=== PATIENT | female | born 1970 | race Caucasian/White ===

== ENCOUNTER 2020-11-12 07:17 | Emergency (ER) | payer OTHER, SELFPAY ==
--- NOTE | ~2020-11-12 | CT_ITS ---
EXAMINATION: CT ANGIOGRAM OF THE CHEST WITH AND WITHOUT CONTRAST (CT PULMONARY ANGIOGRAM FOR PE) CLINICAL INFORMATION: Reason for Exam chest pain dyspnea has COVID r/o PE COMPARISON: Chest x-ray earlier the same day TECHNIQUE: Prior to contrast administration, noncontrast localization images were obtained. Subsequently, multidetector volumetric imaging was performed from the thoracic inlet to below the diaphragms following the administration of 65 mL Omnipaque 350 intravenous contrast. No contrast reaction reported Sagittal, coronal, and MIP oblique sagittal reformatted images were obtained on the CT workstation, uploaded to PACS, and reviewed. This CT examination was performed using dose optimization techniques as appropriate, variously including the following: *Automated exposure control *Adjustment of mA and/or kV according to patient size (this includes techniques or standardized protocols for targeted exams where dose is matched to indication/reason for exam; i.e. extremities or head) *Use of iterative reconstruction technique Total exam dose-length product 241 mGy-cm FINDINGS: QUALITY OF STUDY/CONTRAST BOLUS: Satisfactory. PULMONARY ARTERIES: No central or segmental pulmonary emboli. THORACIC AORTA: No aneurysm or dissection. LUNG: Extensive patchy bilateral groundglass opacities are seen, consistent with history of viral COVID pneumonitis. No dense focal consolidation. PLEURA: No pleural effusion or pneumothorax. MEDIASTINUM: Normal heart size. No pericardial effusion. No hilar or mediastinal lymphadenopathy. No evidence of septal bowing or right heart strain. CHEST WALL/AXILLA: No axillary or internal mammary lymphadenopathy. OSSEOUS STRUCTURES: No acute or suspicious osseous abnormality. UPPER ABDOMEN: No adrenal mass. No reflux of contrast into the hepatic veins to suggest elevated right heart pressures. CT/CT angio chest PE protocol IMPRESSION: No pulmonary embolus seen. Extensive patchy bilateral groundglass opacities, consistent with history of viral COVID pneumonitis. VTE: negative
--- NOTE | ~2020-11-12 | XR_ITS ---
EXAMINATION: XR CHEST CLINICAL INFORMATION: COVID-19 COMPARISON: None TECHNIQUE: Portable AP view of the chest was obtained. FINDINGS: There are patchy bilateral airspace opacities, greatest lower zones. There is no effusion. The heart is normal in size and the vascularity is normal. The hilar and mediastinal contours and bony structures are unremarkable. XR/XR chest 1V IMPRESSION: Bilateral patchy airspace opacities. No effusion.
[2020-11-12 07:30] VITALS: RESP 20; TEMP 37.3; O2SAT 93
--- NOTE | 2020-11-12 07:33 | ED.SOB ---
HPI - SOB/Dyspnea General Chief Complaint: Dyspnea Stated Complaint: COVID POS DIFF BREATHING Time Seen by Provider: 11/12/20 07:24 Source: patient Mode of arrival: ambulatory Limitations: no limitations History of Present Illness HPI Narrative: healthy 50 yo female with COVID dx on 06/06 sick two days prior comes in today she feels like her chest is heavy and she cannot breathe, has no had issues with her lungs in the past and does not smoke MD elicited complaint: shortness of breath, cough and pain with inspiration Pertinent past history: other (COVID positive) Onset (ago): day(s) (3) Context: recent illness Timing: intermittent Severity: moderate Exacerbating factors: exertion, coughing and inspiration Relieving factors: nothing Associated symptoms: chest pain, pain with inspiration, cough and lightheadedness Treatment prior to arrival: none Related Data Previous Rx's Medication Instructions Recorded dexamethasone 6 mg PO DAILY 9 Days #9 tab 11/12/20 hydrocodone-homatropine 5 ml PO Q6H PRN #60 ml 11/12/20 ondansetron 4 mg PO Q8H PRN #20 tab 11/12/20 Allergies Allergy/AdvReac Type Severity Reaction Status Date / Time No Known Allergies Allergy Verified 11/12/20 07:46 Review of Systems Review of Systems: Constitutional : No Fever, pos Chills ENT/Mouth : No sore throat, No Rhinorrhea, No Swallowing Difficulty Eyes: No Eye Pain, No Swelling, No Redness Cardiovascular : pos Chest Pain, positive SOB, No Orthopnea, no Edema Respiratory : pos Cough, No Sputum, No Wheezing, positive dyspnea Gastrointestinal : No Nausea, No Vomiting, No Diarrhea, No abdominal Pain, No Hematochezia, No Melena Genitourinary : No Dysuria, No Urinary Frequency, No Hematuria Musculoskeletal : No joint pain, No Myalgias Skin : No Skin Lesions, No rash Neuro : pos Weakness, No Numbness, No Dizziness, No Headache Psych : No Anxiety/Panic, No Depression Heme/Lymph: No Bruising, No Lymphadenopathy Endocrine : No Polyuria, No Polydipsia All other systems reviewed and are negative [facility] Past Medical History Attestation statement: The following information was validated with the patient. Medical History Hypothyroid Social History Social History Smoked in Last 30 Days: No Use of substances other than those prescribed or required for medical reasons: No Advance Directives: No Advance Directives Information Provided: No Physical Exam Vital Signs: Vital Signs: Last Vital Signs Temp 98.5 F 11/12/20 07:34 Pulse 89 11/12/20 09:23 Resp 18 11/12/20 07:34 BP 108/57 L 11/12/20 09:23 Pulse Ox 94 11/12/20 09:23 Body Mass Index 27.4 Appearance: Alert. Oriented X3. No acute distress. Eyes: Pupils equal, round and reactive to light. ENT: Pharynx normal. Neck: Normal inspection. Neck supple. CVS: Normal heart rate and rhythm. Pulses normal. Respiratory: No respiratory distress. Breath sounds decreased throughout some end exp wheezes noted along with rhonchi Abdomen: Soft and nontender. Skin: Skin warm and dry. Normal skin color. Normal skin turgor. Extremities: No lower extremity edema. No calf ttp Neuro: Oriented X 3. No motor deficit. No sensory deficit. Course Course Course Narrative: given symptoms and ddimer will obtain CTA negative for PE viral pneumonia, will attempt ambulation trial to assess O2 level ambulation trial 93% does not require O2 - can be managed at home with steroids MDM - SOB/Dyspnea MDM Narrative Medical decision making narrative: 50 yo female with recent COVID dx comes in with chest pain and dyspnea will need labs, CXR, ddimer, troponin, EKG, cultures given the wheezing will try INH - if ddimer positive will proceed with CTA dispo per results and findings. Lab Data Result diagrams: 11/12/20 08:04 11/12/20 08:05 Labs: Lab Results 11/12/20 11/12/20 11/12/20 Range/Units 08:04 08:04 08:04 WBC 3.3 L (4.8-10.8) X10*3/uL RBC 3.92 L (4.20-5.50) X10*6/uL Hgb 12.5 (12.0-16.0) g/dl Hct 36.4 L (37-47) % MCV 92.9 (80-98) fL MCH 31.9 (27.0-33.0) pg MCHC 34.3 (31.0-35.0) g/dl RDW 12.3 (11.0-16.0) % Plt Count 149 L (160-400) X10*3/uL MPV 9.6 (9.4-12.3) fL Immature Gran % (Auto) 0.3 (0.0-0.4) % Neut % (Auto) 65.8 (45-73) % Lymph % (Auto) 30.6 (20-40) % [place] % (Auto) 3.0 (2-11) % Eos % (Auto) 0.3 (0-4) % Baso % (Auto) 0.0 (0-2) % Lymph # (Auto) 1.0 L (1.2-4.9) X10*3/uL [place] # (Auto) 0.1 (0.1-1.2) X10*3/uL Eos # (Auto) 0.0 (0.0-0.4) X10*3/uL Baso # (Auto) 0.0 (0.0-0.2) X10*3/uL Abs Immat Gran (auto) 0.01 (0.00-0.03) X10*3/uL Absolute Neuts (auto) 2.2 (2.0-8.3) X10*3/uL Absolute Nucleated RBC 0.000 (0.0-0.012) X10*3/uL Nucleated RBC % (auto) 0.0 (0.0-0.2) /100WBC PT (10.8-13.0) SEC INR (0.9-1.1) APTT (24.1-38.0) SEC D-Dimer NG/ML Sodium (135-145) mmol/L Potassium (3.3-5.1) mmol/L Chloride (96-108) mmol/L Carbon Dioxide (22-29) mmol/L Anion Gap (12-20) BUN (9-16) mg/dL Creatinine (0.5-1.4) mg/dL Estim Creat Clear Calc Estimated GFR Random Glucose (60-115) mg/dL Lactic Acid 0.6 (0.5-2.0) mmol/L Calcium (8.4-10.2) mg/dL Magnesium (1.6-2.6) mg/dL Ferritin (10-250) ng/mL Total Bilirubin (0.0-1.0) mg/dL Direct Bilirubin (0.0-0.5) mg/dL AST (5-31) U/L ALT (0-31) U/L Alkaline Phosphatase (39-117) U/L Lactate Dehydrogenase (122-220) U/L Troponin I High Sens (<3.5-17.0) ng/L B-Natriuretic Peptide (<100) pg/mL Total Protein (6.5-8.0) g/dL Albumin (3.5-5.0) g/dL Procalcitonin ng/mL COVID-19 (CADE) Positive A (Negative) COVID-19 Clin Com See Note 11/12/20 11/12/20 11/12/20 Range/Units 08:05 08:05 08:05 WBC (4.8-10.8) X10*3/uL RBC (4.20-5.50) X10*6/uL Hgb (12.0-16.0) g/dl Hct (37-47) % MCV (80-98) fL MCH (27.0-33.0) pg MCHC (31.0-35.0) g/dl RDW (11.0-16.0) % Plt Count (160-400) X10*3/uL MPV (9.4-12.3) fL Immature Gran % (Auto) (0.0-0.4) % Neut % (Auto) (45-73) % Lymph % (Auto) (20-40) % [place] % (Auto) (2-11) % Eos % (Auto) (0-4) % Baso % (Auto) (0-2) % Lymph # (Auto) (1.2-4.9) X10*3/uL [place] # (Auto) (0.1-1.2) X10*3/uL Eos # (Auto) (0.0-0.4) X10*3/uL Baso # (Auto) (0.0-0.2) X10*3/uL Abs Immat Gran (auto) (0.00-0.03) X10*3/uL Absolute Neuts (auto) (2.0-8.3) X10*3/uL Absolute Nucleated RBC (0.0-0.012) X10*3/uL Nucleated RBC % (auto) (0.0-0.2) /100WBC PT 12.6 (10.8-13.0) SEC INR 1.1 (0.9-1.1) APTT 36.7 (24.1-38.0) SEC D-Dimer 389 NG/ML Sodium 136 (135-145) mmol/L Potassium 3.9 (3.3-5.1) mmol/L Chloride 105 (96-108) mmol/L Carbon Dioxide 23 (22-29) mmol/L Anion Gap 12 (12-20) BUN 12 (9-16) mg/dL Creatinine 0.73 (0.5-1.4) mg/dL Estim Creat Clear Calc 84.7 Estimated GFR > 60 Random Glucose 92 (60-115) mg/dL Lactic Acid (0.5-2.0) mmol/L Calcium 7.9 L (8.4-10.2) mg/dL Magnesium 2.1 (1.6-2.6) mg/dL Ferritin 750 H (10-250) ng/mL Total Bilirubin 0.4 (0.0-1.0) mg/dL Direct Bilirubin < 0.2 (0.0-0.5) mg/dL AST 42 H (5-31) U/L ALT 38 H (0-31) U/L Alkaline Phosphatase 51 (39-117) U/L Lactate Dehydrogenase 399 H (122-220) U/L Troponin I High Sens 3.7 (<3.5-17.0) ng/L B-Natriuretic Peptide 17 (<100) pg/mL Total Protein 6.3 L (6.5-8.0) g/dL Albumin 3.7 (3.5-5.0) g/dL Procalcitonin ng/mL COVID-19 (CADE) (Negative) COVID-19 Clin Com 11/12/20 Range/Units 08:05 WBC (4.8-10.8) X10*3/uL RBC (4.20-5.50) X10*6/uL Hgb (12.0-16.0) g/dl Hct (37-47) % MCV (80-98) fL MCH (27.0-33.0) pg MCHC (31.0-35.0) g/dl RDW (11.0-16.0) % Plt Count (160-400) X10*3/uL MPV (9.4-12.3) fL Immature Gran % (Auto) (0.0-0.4) % Neut % (Auto) (45-73) % Lymph % (Auto) (20-40) % [place] % (Auto) (2-11) % Eos % (Auto) (0-4) % Baso % (Auto) (0-2) % Lymph # (Auto) (1.2-4.9) X10*3/uL [place] # (Auto) (0.1-1.2) X10*3/uL Eos # (Auto) (0.0-0.4) X10*3/uL Baso # (Auto) (0.0-0.2) X10*3/uL Abs Immat Gran (auto) (0.00-0.03) X10*3/uL Absolute Neuts (auto) (2.0-8.3) X10*3/uL Absolute Nucleated RBC (0.0-0.012) X10*3/uL Nucleated RBC % (auto) (0.0-0.2) /100WBC PT (10.8-13.0) SEC INR (0.9-1.1) APTT (24.1-38.0) SEC D-Dimer NG/ML Sodium (135-145) mmol/L Potassium (3.3-5.1) mmol/L Chloride (96-108) mmol/L Carbon Dioxide (22-29) mmol/L Anion Gap (12-20) BUN (9-16) mg/dL Creatinine (0.5-1.4) mg/dL Estim Creat Clear Calc Estimated GFR Random Glucose (60-115) mg/dL Lactic Acid (0.5-2.0) mmol/L Calcium (8.4-10.2) mg/dL Magnesium (1.6-2.6) mg/dL Ferritin (10-250) ng/mL Total Bilirubin (0.0-1.0) mg/dL Direct Bilirubin (0.0-0.5) mg/dL AST (5-31) U/L ALT (0-31) U/L Alkaline Phosphatase (39-117) U/L Lactate Dehydrogenase (122-220) U/L Troponin I High Sens (<3.5-17.0) ng/L B-Natriuretic Peptide (<100) pg/mL Total Protein (6.5-8.0) g/dL Albumin (3.5-5.0) g/dL Procalcitonin 0.10 ng/mL COVID-19 (CADE) (Negative) COVID-19 Clin Com ECG Data Attestation: I personally reviewed and interpreted this ECG as follows: ECG interpretation date: 11/12/20 ECG interpretation time: 09:31 Interpretation: Rate: 85 Rhythm: NSR [place]: left Normal P waves. Normal FELICITY. Normal QRS complex. ST T wave : normal no CATHERINE qTC: slightly prolonged prior studies: no acute ischemia The study has been interpreted contemporaneously by me. . Discharge Plan Discharge Clinical Impression: Pneumonia due to 2019-nCoV Patient Disposition: Home, Self-Care Additional Instructions: return to ED for any worsening symptoms or concerns IF YOU ARE SO SHORT YOU CANNOT WALK TO YOUR BATHROOM PLEASE RETURN TO THE ED YOU CAN USE THE INHALER 2 TO 4 PUFFS EVERY 4 HOURS NEEDED FOR COUGH AND SHORTNESS OF BREATH Prescriptions: New dexamethasone 6 mg tablet 6 mg PO DAILY 9 Days Qty: 9 RF: 0 hydrocodone-homatropine 5-1.5 mg/5 mL (5 mL) syrup 5 ml PO Q6H PRN (Reason: cough) Qty: 60 RF: 0 ondansetron 4 mg tablet,disintegrating 4 mg PO Q8H PRN (Reason: nausea and vomiting) Qty: 20 RF: 0 Referrals: Marisel Landa MD [Primary Care Provider] - 5 days Stand Alone Forms: Work/School Release
[2020-11-12 07:34] VITALS: BP 98/65; PULSE 86; RESP 18; TEMP 36.9; O2SAT 92; BMI 27.4
[2020-11-12 07:41] VITALS: O2SAT 96
--- NOTE | 2020-11-12 07:47 | ECG_ITS ---
Test Reason : DIFFICULT BREATHING Blood Pressure : / mmHG Vent. Rate : 085 BPM Atrial Rate : 085 BPM P-R Int : 156 ms QRS Dur : 098 ms QT Int : 420 ms P-R-T Axes : 041 000 037 degrees QTc Int : 499 ms Normal sinus rhythm Prolonged QT Abnormal ECG No previous ECGs available Referred By: Echo Pimentel Electronically Signed By:Jerry Keating
[2020-11-12] MEDS: 0.9 % Sodium Chloride 500 ML IV (08:10)
[2020-11-12 08:11] LABS: MANUAL DIFF FLAG NO
[2020-11-12] MEDS: dexAMETHasone sod phosphate 4 MG/ML VIAL 6 MG IVPUSH (08:11)
[2020-11-12 08:14] LABS: Eosinophils Percent Auto 0.3 % (0-4); Hematocrit 36.4 % (37-47); Hemoglobin 12.5 g/dl (12.0-16.0); Imm Gran Abs Auto 0.01 X10*3/uL (0.00-0.03); Imm Gran Pct Auto 0.3 % (0.0-0.4); Lymphocytes Percent Auto 30.6 % (20-40); Mean Corpuscular HGB Conc 34.3 g/dl (31.0-35.0); Mean Corpuscular Hemoglobin 31.9 pg (27.0-33.0); Mean Corpuscular Volume 92.9 fL (80-98); Mean Platelet Volume 9.6 fL (9.4-12.3); Monocytes Absolute Auto 0.1 X10*3/uL (0.1-1.2); Neutrophils Absolute Auto 2.2 X10*3/uL (2.0-8.3); Neutrophils Percent Auto 65.8 % (45-73); Platelet Count 149 X10*3/uL (160-400); Red Blood Count 3.92 X10*6/uL (4.20-5.50); Red Cell Distribution Width 12.3 % (11.0-16.0); White Blood Count 3.3 X10*3/uL (4.8-10.8)
[2020-11-12 08:19] LABS: INTERNATIONAL NORM RATIO 1.1 (0.9-1.1); Prothrombin Time 12.6 SEC (10.8-13.0)
[2020-11-12 08:20] LABS: COVID-19 Test Positive (Negative)
[2020-11-12 08:21] LABS: Partial Thromboplastin Time 36.7 SEC (24.1-38.0)
[2020-11-12 08:22] LABS: D Dimer 389 NG/ML
[2020-11-12 08:31] LABS: Lactic Acid 0.6 mmol/L (0.5-2.0)
[2020-11-12] MEDS: Albuterol Sulfate 90 MCG 8 GM INHALER 4 PUFF INHALE (08:31)
[2020-11-12 08:33] VITALS: PULSE 79
[2020-11-12 08:37] LABS: Alanine Aminotransferase 38 U/L (0-31); Albumin Level 3.7 g/dL (3.5-5.0); Alkaline Phosphatase 51 U/L (39-117); Anion Gap 12 (12-20); Aspartate Amino Transferase 42 U/L (5-31); Bilirubin Direct < 0.2 mg/dL (0.0-0.5); Bilirubin Total 0.4 mg/dL (0.0-1.0); Blood Urea Nitrogen 12 mg/dL (9-16); Calcium 7.9 mg/dL (8.4-10.2); Carbon Dioxide 23 mmol/L (22-29); Chloride 105 mmol/L (96-108); Creatinine Clr Calc Pharmacy 84.7; Estimated Glomerular Filt Rate > 60; Glucose Random 92 mg/dL (60-115); Lactate Dehydrogenase 399 U/L (122-220); Magnesium 2.1 mg/dL (1.6-2.6); Potassium 3.9 mmol/L (3.3-5.1); Sodium 136 mmol/L (135-145); Total Protein 6.3 g/dL (6.5-8.0)
[2020-11-12 08:55] LABS: B Type Natriuretic Peptide 17 pg/mL (<100); Troponin-I High Sensitivity 3.7 ng/L (<3.5-17.0)
[2020-11-12] MEDS: iohexoL 350 MG/ML 100 ML INFUS..BTL IV (09:07)
[2020-11-12 09:15] LABS: Ferritin 750 ng/mL (10-250)
--- NOTE | 2020-11-12 09:22 | PC.NURSE ---
ambulated patient without oxygen, o2 sat did not drop below 95%.
[2020-11-12 09:23] VITALS: BP 108/57; PULSE 89; O2SAT 94
== END 2020-11-12 09:59 | disposition home or self-care (01) ==
PROVIDERS: Emergency Provider Emergency Medicine; PCP Family Medicine
DX: U07.1 COVID-19 (principal); J12.82 Pneumonia due to coronavirus disease 2019; R05 Cough
CPT/HCPCS: 36415; 71045; 71275; 80048; 80076; 82728; 83605; 83615; 83735; 83880; 84145; 84484; 85025; 85379; 85610; 85730; 87040; 87147; 87205; 87635; 93005; 94640; 96361; 96374; 99284; J1100; Q9967

== ENCOUNTER → 2020-12-10 09:28 | Outpatient (BNVA) | payer OTHER, SELFPAY | PROVIDERS: PCP Family Medicine; Visit Provider Internal Medicine Pulmonary Disease ==